=== PATIENT | male | born 1990 | race American Indian/Alaskan Native ===

== ENCOUNTER 2019-07-16 18:15 | Emergency (ER) | payer OTHER ==
--- NOTE | 2019-07-16 21:56 | Emergency Department Report ---
Blank Doc - Documentation Documentation: 29-year-old male that presents with tachycardia and URI symptoms. This initial assessment/diagnostic orders/clinical plan/treatment(s) is/are subject to change based on patient's health status, clinical progression and re- assessment by fellow clinical providers in the ED. Further treatment and workup at subsequent clinical providers discretion. Patient/guardians urged not to elope from the ED as their condition may be serious if not clinically assessed and managed. Initial orders include: 1- Patient sent to [facility] for further evaluation and treatment 2- CXR
--- NOTE | 2019-07-16 22:49 | XRay Report ---
CHEST 2 VIEWS INDICATION / CLINICAL INFORMATION: Cough, lethargy, runny nose, body aches, fever, nausea, sore throat. COMPARISON: None available. FINDINGS: SUPPORT DEVICES: None. HEART / MEDIASTINUM: No significant abnormality. LUNGS / PLEURA: No significant pulmonary or pleural abnormality. No pneumothorax. ADDITIONAL FINDINGS: No significant additional findings. IMPRESSION: 1. No acute abnormality of the chest. Signer Name: Juan Blue MD Signed: 07/16/2019 10:45 PM Workstation Name: [id number]
--- NOTE | 2019-07-16 23:25 | Emergency Department Report ---
- General Chief Complaint: Upper Respiratory Infection Stated Complaint: FLU SYM Time Seen by Provider: 07/16/19 21:55 Source: patient Mode of arrival: Ambulatory Limitations: No Limitations - History of Present Illness Initial Comments: Patient is a 29-year-old male presents emergency room with complaints of URI symptoms that began 3 days ago. He has associated postnasal drip, nausea, headache, right ear pain, felt like his right ear popped, dry cough. He states that he had a fever of 100.8 two days ago but that has since resolved. He denies any diarrhea, vomiting, chest pain, shortness of breath. Patient states that he works on a [place] but has only gone in the [place] and [place] region. He denies any known sick contacts. He is not aware of any confirmed cases of COVID [place] and no one has had to be quarantined. He denies any past medical history. He denies any allergies to medications. He states he is a non-smoker. - Related Data Previous Rx's Medication Instructions Recorded Last Taken Type Amoxicillin [Amoxicillin TAB] 875 mg PO BID 20 Days #10 tablet 07/16/19 Unknown Rx Neomycin/Polymyxin B/Hydrocort 4 drops AD QID 7 Days #1 solution 07/16/19 Unknown Rx [Cidpcvwh-Orciseuui-Km Ear Soln] Allergies Allergy/AdvReac Type Severity Reaction Status Date / Time No Known Allergies Allergy Unverified 07/16/19 21:57 ED Review of Systems ROS: Stated complaint: FLU SYM Other details as noted in HPI Comment: All other systems reviewed and negative ED Past Medical Hx - Past Medical History Previous Medical History?: No - Surgical History Past Surgical History?: No - Social History Smoking Status: Never Smoker Substance Use Type: None - Medications Home Medications: Home Medications Medication Instructions Recorded Confirmed Last Taken Type Amoxicillin [Amoxicillin TAB] 875 mg PO BID 20 Days #10 tablet 07/16/19 Unknown Rx Neomycin/Polymyxin B/Hydrocort 4 drops AD QID 7 Days #1 solution 07/16/19 Unknown Rx [Trczprkb-Pahivwmib-Ic Ear Soln] ED Physical Exam - General Limitations: No Limitations General appearance: alert, in no apparent distress - Head Head exam: Present: atraumatic, normocephalic - Eye Eye exam: Present: normal appearance - ENT ENT exam: Present: normal orophraynx, mucous membranes moist, other (left TM and canal are normal, right TM is erythematous with purulence behind the TM, right ear canal is erythematous, TM is intact) - Respiratory Respiratory exam: Present: normal lung sounds bilaterally. Absent: respiratory distress, wheezes, rales, rhonchi, stridor, chest wall tenderness, accessory muscle use, decreased breath sounds, prolonged expiratory - Cardiovascular Cardiovascular Exam: Present: regular rate, normal rhythm, normal heart sounds. Absent: systolic murmur, diastolic murmur, rubs, gallop - Neurological Exam Neurological exam: Present: alert, oriented X3 - Psychiatric Psychiatric exam: Present: normal affect, normal mood - Skin Skin exam: Present: warm, dry, intact ED Course Vital Signs 07/16/19 07/16/19 19:22 23:40 Temperature 98.6 F 98.1 F Pulse Rate 80 76 Respiratory 18 17 Rate Blood Pressure 143/98 Blood Pressure 151/92 [Right] O2 Sat by Pulse 97 99 Oximetry ED Medical Decision Making - Lab Data Vital Signs 07/16/19 07/16/19 19:22 23:40 Temperature 98.6 F 98.1 F Pulse Rate 80 76 Respiratory 18 17 Rate Blood Pressure 143/98 Blood Pressure 151/92 [Right] O2 Sat by Pulse 97 99 Oximetry - Radiology Data Radiology results: report reviewed CHEST 2 VIEWS INDICATION / CLINICAL INFORMATION: Cough, lethargy, runny nose, body aches, fever, nausea, sore throat. COMPARISON: None available. FINDINGS: SUPPORT DEVICES: None. HEART / MEDIASTINUM: No significant abnormality. LUNGS / PLEURA: No significant pulmonary or pleural abnormality. No pneumothorax. ADDITIONAL FINDINGS: No significant additional findings. IMPRESSION: 1. No acute abnormality of the chest. Signer Name: Juan Blue MD Signed: 07/16/2019 10:45 PM Workstation Name: [id number] Transcribed By: [place] Dictated By: Juan Blue MD Electronically Authenticated By: Juan Blue MD Signed Date/Time: 07/16/192244 DD/ 44 TD/TT: - Medical Decision Making Patient is a 29-year-old male presents emergency room with complaints of URI symptoms that began 3 days ago. He has associated postnasal drip, nausea, headache, right ear pain, felt like his right ear popped, dry cough. He states that he had a fever of 100.8 two days ago but that has since resolved. He denies any diarrhea, vomiting, chest pain, shortness of breath. Patient states that he works on a [place] but has only gone in the [place] and [place] region. He denies any known sick contacts. He is not aware of any confirmed cases of COVID [place] and no one has had to be quarantined. He denies any past medical history. He denies any allergies to medications. He states he is a non-smoker. on exam: left TM and canal are normal, right TM is erythematous with purulence behind the TM, right ear canal is erythematous, TM is intact, breath sounds are clear bilaterally, no wheezing, no rales, no rhonchi. VSS. pt is afebrile. Examination consistent with otitis media and externa. Patient is afebrile, unlikely to be flu, patient is out of the 48-hour range for Tamiflu anyways. Could be related to another viral URI. Patient has no clinical signs or symptoms of pneumonia. CXR ordered prior to my examination: 1. No acute abnormality of the chest. Patient given prescription for amoxicillin and antibiotic eardrops. advised pt Please use medication as prescribed. Increase your fluid intake over the next several days. May alternate Tylenol then ibuprofen every 6 hours as needed for fever or discomfort. May take qnsn-yxr-erzinxl Mucinex or TheraFlu as needed. Please stay at home until you are symptom-free for 24 hours. Follow-up with a primary care doctor in the next 3 to 5 days for reexamination and ear recheck. Return to the emergency room immediately for any new or worsening symptoms including but not limited to worsening fever, chest pain, difficulty breathing, inability to tolerate by mouth intake, etc. - Differential Diagnosis URI, PNA, otitis externa, otitis media, viral syndrome, influenza Critical care attestation.: If time is entered above; I have spent that time in minutes in the direct care of this critically ill patient, excluding procedure time. ED Disposition Clinical Impression: Otitis media Qualifiers: Otitis media type: suppurative Chronicity: acute Laterality: right Recurrence: non-recurrent Spontaneous tympanic membrane rupture: without spontaneous rupture Qualified Code(s): H66.001 - Acute suppurative otitis media without spontaneous rupture of ear drum, right ear Otitis externa Qualifiers: Otitis externa type: unspecified type Chronicity: acute Laterality: right Qualified Code(s): H60.501 - Unspecified acute noninfective otitis externa, right ear Upper respiratory infection Qualifiers: URI type: unspecified URI Qualified Code(s): J06.9 - Acute upper respiratory infection, unspecified Disposition: TO HOME OR SELFCARE Is pt being admited?: No Does the pt Need Aspirin: No Condition: Stable Instructions: Otitis Externa (ED), Otitis Media (ED), Upper Respiratory Infection (ED) Additional Instructions: Please use medication as prescribed. Increase your fluid intake over the next several days. May alternate Tylenol then ibuprofen every 6 hours as needed for fever or discomfort. May take oysm-dfl-jggnkyb Mucinex or TheraFlu as needed. Please stay at home until you are symptom-free for 24 hours. Follow-up with a primary care doctor in the next 3 to 5 days for reexamination and ear recheck. Return to the emergency room immediately for any new or worsening symptoms including but not limited to worsening fever, chest pain, difficulty breathing, inability to tolerate by mouth intake, etc. Prescriptions: Amoxicillin [Amoxicillin TAB] 875 mg PO BID 20 Days #10 tablet Neomycin/Polymyxin B/Hydrocort [Rcscwlsj-Lssutdusd-Wj Ear Soln] 4 drops AD QID 7 Days #1 solution Referrals: [facility] [Outside] - 3-5 Days [facility] [Outside] - 3-5 Days VIRY MOTA MD [Staff Physician] - 3-5 Days Forms: Work/School Release Form(ED) Time of Disposition: 23:24 Print Language: MICRONESIAN
[2019-07-17 02:46] VITALS: BP 151/92
== END 2019-07-16 23:40 | disposition home or self-care (01) ==
LOC: ED 18:15
DX: H66.91 Otitis media, unspecified, right ear (principal); H60.91 Unspecified otitis externa, right ear; J06.9 Acute upper respiratory infection, unspecified; Z79.1 Long term (current) use of non-steroidal anti-inflammatories (NSAID); Z79.899 Other long term (current) drug therapy
CPT/HCPCS: 71046